=== PATIENT | male | born 1980 ===

== ENCOUNTER 2025-05-01 12:18 | Outpatient (AMB) | payer OTHER, MEDICAID, SELFPAY ==
--- NOTE | 2025-05-01 12:24 | A.OFFVIS_ITS ---
Intake Visit Reasons: 6m follow up autism Allergies No Known Allergies Allergy (Unverified 01/31/20 14:41) HPI Comments Details: 44 years old man with diagnosis of autism. I initially saw him in 2014. He was born in [facility] from a full-term . He started having seizure when he was 4 to 5 years old and was treated with some antiseizure medicine that would later stopped. His EEG in 2014 was unremarkable. He walked at age 5. His language was significantly impaired in his said few words when he was about 7 years old. In school, he was put in special Ed classes. In his early 20s, he started having behavioral symptoms of anger, fighting, delusions and hallucinations. He was seen by a psychiatrist and was put on psychotropic medicines. He is treated for insomnia, restless legs syndrome, and behavioral symptomatology. He is presenting for medication refills. He has a history of seizures as a child but has had none recently, and a prior EEG was conducted approximately 10 years ago. His sister reports that he continues to experience restlessness. He uses a CPAP machine for a sleep-related breathing disorder, and his baton teacher has scheduled him for a repeat sleep study tonight due to concerns about its efficacy. Current medications include oxcarbazepine two tablets at bedtime, gabapentin one tablet at bedtime, and clonidine one tablet at bedtime. Review of Systems Narrative - Neurological: Reports restlessness. Denies recent seizure activity. Physical Exam Neuro Other: Mental Status: He is alert and awake giggling and laughing sometime seeing a single word. Cranial Nerves: CN II: Visual lozano full to confrontation, visual acuity intact. CN III, IV, : Pupils equal, round, reactive to light and accommodation. Extraocular movements are normal. CN V: Facial sensation is normal. CN VII: Facial movements symmetrical. CN VIII: Hearing intact to bedside conversation is normal. CN IX, X: Palate elevates symmetrically. CN XI: Shoulder shrug and head turn symmetrical. CN XII: Tongue midline without atrophy or fasciculations. Gait and Station: No obvious gait abnormality. No ataxia or instability. Extrapyramidal: Full facial expressions and blinking. No rigidity. Movements are appropriate with no tremor or abnormality. Speech: Normal; no dysarthria or tremor. Assessment & Plan Assessment & Plan (1) Insomnia: Code(s): G47.00 - Insomnia, unspecified Category: Medical Qualifiers: Insomnia type: due to other mental disorder Qualified Code(s): F51.05 - Insomnia due to other mental disorder; F99 - Mental disorder, not otherwise specified (2) RLS (restless legs syndrome): Code(s): G25.81 - Restless legs syndrome Category: Medical (3) Autism: Code(s): F84.0 - Autistic disorder Category: Medical Plan Impression: 1. Autism spectrum disorder, moderate to severely affected, with behavioral symptoms. 2. Restless legs syndrome 3. Chronic insomnia. Recommendations: 1. Oxcarbazepine 300 mg 2 tablets at night 2. Gabapentin 300 mg 1 at bedtime and 3. Clonidine 0.1 mg 1 at bedtime 4. EEG I discussed the plan with the patient's sister. We reviewed his current medications, and I have sent refills for oxcarbazepine, gabapentin, and clonidine to the [facility] pharmacy on file. I recommended scheduling a new EEG, as his last one was 10 years ago. We acknowledged the upcoming sleep study ordered by his baton teacher. He is to follow up in three months. Orders: Orders EEG Routine Today G40.909 - Epilepsy, unspecified, not intractable, without status epilepticus Medications: New gabapentin 300 mg orally one at bedtime; 90 caps 0RF oxcarbazepine 600 mg orally at bedtime; 180 tabs 0RF clonidine HCl 0.1 mg PO BEDTIME 90 tabs 0RF Coding Level of Care Code Est Pt Level 4 (38746) Diagnoses Insomnia due to other mental disorder F51.05; F99 Insomnia type: due to other mental disorder RLS (restless legs syndrome) G25.81 Autism F84.0
--- OUTSIDE RECORDS SUMMARY | 2025-05-01 16:13 | XMS_ITS | Encounter Summary ---
Author Organization [email or web address] [facility] Address [address] [place] [address] Care Team Providers Care Marketing Analytics Manager Name Role Phone Unavailable Primary Care Provider Unavailabl e Encounter Details Date Type Department Care Team (Latest Contact Info) Description 10/28/2020 Abstract C CONVERSIONS Dental, Provider, DDS Social History Tobacco Use Types Packs/Day Years Used Date Smoking Tobacco: Never Assessed Sex and Gender Information Value Date Recorded Sex Assigned at Male 03/15/2022 10:15 AM EDT Legal Sex Male 10:15 AM EDT Gender Identity Male 03/15/2022 10:15 AM EDT Sexual Orientation Straight 03/15/2022 10 :15 AM EDT documented as of this encounter Plan of Treatment Not on file documented as of this encounter Visit Diagnoses Not on filedocumented in this encounter
--- OUTSIDE RECORDS SUMMARY | 2025-05-01 16:13 | XMS_ITS | Encounter Summary ---
Author Organization [facility] Address [address] [place] [address] Care Team Providers Care Block Mechanic Name Role Phone Unavailable Primary Care Provider Unavailabl e Encounter Details Date Type Department Care Team (Latest Contact Info) Description 07/19/2019 Abstract C CONVERSIONS Dental, Provider, DDS Social [...]
--- OUTSIDE RECORDS SUMMARY | 2025-05-01 16:13 | XMS_ITS | Clinical Summary ---
Author Organization [facility] [address] [facility] Address [address] [place], [place] Phone Care Team Providers Care Gas Pumping Station Supervisor Name Role Phone Artem North MD Primary Care Provider [phone] Allergies Active Allergy Reactions Criticality Noted Date Comments Other 06/19/2019 Seasonal Medications loratadine (CLARITIN) 10 mg tablet Take 1 tablet (10 mg total) by mouth 1 (one) time each day. 4 Active cloNIDine (CATAPRES) 0.1 mg tablet Take 1 tablet (0.1 mg total) by mouth 1 (one) time each day. 3 Active gabapentin (NEURONTIN) 300 mg capsule Take 1 capsule (300 mg total) by mouth at bedtime. 3 Active OXcarbazepine (TRILEPTAL) 300 mg tablet Take 2 Tabs by mouth every evening. 1 Active risperiDONE (RisperDAL) 1 mg tablet TAKE 1 TABLET BY MOUTH EVERYDAY AT BEDTIME 30 tablet 5 Active traZODone (DESYREL) 100 mg tablet Take 1 tablet (100 mg total) by mouth at bedtime. 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 Schizophrenia 04/10/2024 Insomnia disorder, with non- sleep disorder mental comorbidity, persistent 01/25/2023 Overweight (BMI 25.0-29.9) 01/25/2023 Nocturnal hypoxemia 04/05/2020 Obstructive sleep apnea 04/05/2020 Overview (04/10/2024): [facility] Home Sleep Apnea Test: Date 03/29/2020; Wt 214#; BMI 31; JUSTICE (AHI) 76, AI 74; HI 2; Unclassified apneas 0; Obstructive apneas 447; Central apneas 16; Mixed apneas 8; hypopneas 12; average oxygen saturation 92% (lowest 56% with saturations <88% for 5% or more of study) SMS treatment polysomnogram 08/03/2021; weight 218; BMI 21. Interpretation: Respiratory events were controlled at arrange of test and CPAP pressures at and above 10 cm but snoring was still present. Recommendation was for CPAP at 18. - Obstructive Sleep Apnea - severe; mostly obstructive apneas; with sleep related hypoventilation by 2019 home sleep apnea test. Seasonal allergic rhinitis 09/09/2017 Encounters Date Type Department Care Team Description 02/08/2025 11:00 AM EDT Office Visit Pulmonology - [address] [place] [address] Velma Salvador NP Obstructive sleep apnea (Primary Dx); Nocturnal hypoxemia; Autism; Schizophrenia, unspecified type (CMS/[facility] V24, CMS/[facility] V28); Obesity (BMI 30-39.9) from Last 3 Months Immunizations Immunization Administration Dates Next Due Influenza Quadravalent, MDCK , 0.5ml, preservative free (Flucelvax) 6mo and older 06/17/2022,01/29/2020,03/26/2019 Influenza Quadravalent, MDCK , 0.5ml, with preservative (Flucelvax) 6mo and older 03/13/2018,05/11/2017 Influenza trivalent, 0.5mL, preservative free (Fluarix; FluLaval; Fluzone) ages 6mo and older (Afluria) 3 years and older 02/05/2016,03/27/2015,03/21/2014 Moderna SARS-CoV-2 COVID-19, mRNA, LNP-S, preservative free 05/14/2021 Tdap Tetanus diptheria acell ular pertussis (Boostrix; Adacel) 7yo and older 05/22/2013 Medical History Medical History Date Comments 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 No 12/11/2024 Food Access & Nutrition Answer Date Rec orded Do you have access to a vari ety of food including fruits and vegetables? Yes 12/11/2024 Access to Healthcare Answer Date Record ed Within the last 3 months, leda michel many times did you visit the emergency department for your medical care? 0 12/11/2024 Health Literacy Answer Date Recorded How often do you need to hav e someone help you when you read instructions, pamphlets, or other written material from your doctor or pharmacy? Always 12/11/2024 Caregiver: How often do you need to have someone help you when you read instructions, pamphlets, or other written material from your doctor or pharmacy? Not on file 12/11/2024 Financial Risk Answer Date Recorded How hard is it for you to pa y for the very basics like food, housing, medical care, and air conditioning / heating? Not very hard 12/11/2024 Transportation Answer Date Recorded Has the lack of transportati on kept you from meetings, work, or from getting things needed for daily living? No Has the lack of transportati on kept you from medical appointments or from getting medications? No 12/11/2024 Social Isolation Answer Date Recorded How often do you feel lonely or isolated from th ose around you? Never 12/11/2024 Food Risk Answer Date Recorded Within the past 12 months we worried whether our food would run out before we got money to buy more. Never true 12/11/2024 Within the past 12 months th e food we bought just didn't last and we didn't have money to get more. Never true 12/11/2024 Dependent Care Answer Date Recorded Do you need help finding or paying for care for your loved ones. For example, childcare center administrator or elderly care for an older adult? No 12/11/2024 Education Answer Date Recorded Do you think completing more education or training, like finishing a GED, going to college, or learning a trade, would be helpful for you? No 12/11/2024 Employment and Income Answer Date Recor ded During the last four weeks, have you been actively looking for work? No 12/11/2024 Living Situation Answer Date Recorded What is your living situation? Unrecognized valu e 12/11/2024 Sex and Gender Information Value Date Recorded Sex Assigned at Not on file Legal Sex Male 1:55 PM EST Gender Identity Not on file Sexual Orientation Not on file Last Filed Vital Signs Vital Sign Reading Time Taken Comments Blood Pressure 124/80 02/08/2025 11:14 AM EDT Pulse 84 02/08/2025 11:14 AM EDT Temperature 36.3 C (97.4 F) 02/08/2025 11:14 AM EDT Respiratory Rate 14 02/08/2025 11:14 AM EDT Oxygen Saturation 99% 02/08/2025 11:14 AM EDT Inhaled Oxygen Concentration - - Weight 101 kg (222 lb 9.6 oz) 02/08/2025 11:14 A M EDT Height 177.8 cm (5' 10 ) 02/08/2025 11:14 AM EDT Body Mass Index 31.94 02/08/2025 11:14 AM EDT Plan of Treatment Upcoming Encounters Date Type Department Care Team (Late st Contact Info) Description 05/08/2025 10:00 AM EST Office Visit Adult Medicine [facility] [address] [place] [address] Michelle Garcia NP [address] [place] [address] 06/10/2025 11:00 AM EST Office Visit Pulmonology - [place] [address] [place] [address] Velma Salvador, TREVOR [address] [place] [address] Health Maintenance Due Date Last Done Comments Hepatitis B Vaccines (1 of 3 - 19+ 3-dose series) 2001 HPV Vaccines (1 - 3-dose SCDM series) 2009 HIV Screening 04/24/2022 Hepatitis C Screening 04/24/2022 Medicare Annual Wellness Visit 04/24/2022 DTaP,Tdap,and Td Vaccines (2 - Td or Tdap) 05/22/2023 05/22/2013 COVID-19 Vaccine ( season) 2025 05/14/2021, 09/24/2020, 08/27/2020 Social Influencers of Health Screening 12/11/2025 12/11/2024 Cholesterol Screening (Lipid Panel) 06/05/2029 06/05/2024, 12/02/2023, 12/02/2023 RSV Immunization Adult Patients (1 - 1-dose 75+ series) 2057 Depression Screening Completed 12/11/2024 Influenza Vaccine Completed 02/26/2025, , 03/12/2021, Additional history exists HIB Vaccines Aged Out No longer eligi ble based on patient's age to complete this topic Hepatitis A Vaccines Aged Out No long er eligible based on patient's age to complete this topic IPV Vaccines Aged Out No longer eligi ble based on patient's age to complete this topic MMR Vaccines Aged Out No longer eligi ble based on patient's age to complete this topic Meningococcal ACWY Vaccine Aged Out N o longer eligible based on patient's age to complete this topic Meningococcal B Vaccine Aged Out No l onger eligible based on patient's age to complete this topic Pneumococcal Vaccine: Pediatrics (0 to 5 Years) and At-Risk Patients (6 to 49 Years) Aged Out No longer eligible based on patient's age to complete this topic RSV Immunization Patients Under 20 months Aged Out No longer eligible based on patient's age to complete this topic Varicella Vaccines Aged Out No longer eligible based on patient's age to complete this topic Procedures Procedure Name Priority Date/Time Associated Diagnosis Comments LIPID PANEL WITH REFLEX TO DIRECT LDL Routine 06/05/2024 4:22 PM EST High cholesterol from Last 3 Months or Most Recently Relevant to Health Maintenance Results * (ABNORMAL) Lipid panel with reflex to direct LDL (06/05/2024 4:22 PM EST) Cholesterol 216(H) 0 - 200 mg/dL LAB CHEMISTRY METHOD 06/05/2024 7:11 PM EST [facility] Triglycerides 277(H) 0 - 150 mg/dL LAB CHEMISTRY METHOD 06/05/2024 7:11 PM [facility] HDL 60 >=40 mg/dL LAB CHEMISTRY METHOD 06/05/2024 7:11 PM EST [facility] LDL Calculated 101(H) 0 - 100 mg/dL LAB CHEMISTRY METHOD 06/05/2024 7:11 PM EST [facility] VLDL Cholesterol Killian 55.4 mg/dL LAB CHEMISTRY METHOD 06/05/2024 7:11 PM EST [facility] Non HDL Chol. (LDL+VLDL) 156(H) <145 mg/dL LAB CHEMISTRY METHOD 06/05/2024 7:11 PM EST [facility] Chol/HDL Ratio 3.6 0.0 - 4.4 LAB CHEMISTRY METHOD 06/05/2024 7:11 PM EST [facility] Blood Venous blood specimen / Unknown Venipuncture / Unknown 06/05/2024 4:22 PM EST 06/05/2024 4:22 PM EST us Artem North MD LAB BLOOD ORDERABLES Final Resu lt [facility] [address] [place] [address], [place] [phone] from Last 3 Months or Most Recently Relevant to Health Maintenance Insurance [employer] MED[employer] Member Subscriber Plan / Payer (Ef fective 2018-Present) Name:MARIO OLVERA Relation to Subscriber:Self Name:Mario Olvera Payer ID:[id number] Group ID:[id number] Type:Not on file Address: [place] [address] [address] [id number] Care Teams Gas Pumping Station Supervisor Relationship Specialty Start Date End Date Artem North MD [address] [place] [phone] PCP - General Internal Medicine 02/08/25
--- OUTSIDE RECORDS SUMMARY | 2025-05-01 16:13 | XMS_ITS | Clinical Summary ---
Author Organization [employer] Address [address] [place] [address] Care Team Providers Care Cement Conveyor Operator Name Role Phone Unavailable Primary Care Provider Unavailabl e Social History Tobacco Use Types Packs/Day Years Used Date Smoking Tobacco: Never Assessed Sex and Gender Information Value Date Recorded Sex Assigned at Male 03/15/2022 10:15 AM EDT Legal Sex Male 10:15 AM EDT Gender Identity Male 03/15/2022 10:15 AM EDT Sexual Orientation Straight 03/15/2022 10 :15 AM EDT Plan of Treatment Health Maintenance Due Date Last Done Comments Depression Screening 1982 Lipid Panel 1982 Disability Screening 1982 Alcohol/Substance Use Screening 1994 Tobacco Screening 1994 Family Planning (PISQ) 1997 HPV Vaccines (1 - Male 3-dos e series) 1997 DTaP/Tdap/Td Vaccines (1 - Tdap) 2001 Hepatitis B Vaccines (1 of 3 - 19+ 3-dose series) 2001 COVID-19 Vaccine (1 - 2024-2 6 season) 2025 Influenza Vaccine (#1) 2025 Zoster Vaccines (1 of 2) 2032 RSV Patients and Pa tients Aged 60 years or older (1 - 1-dose 75+ series) 2057 HIB Vaccines Aged Out No longer eligi [...] patient's age to complete this topic Meningococcal Vaccine Aged Out No paul joanne eligible based on patient's age to complete this topic Pneumococcal Vaccine: Pediat rics (0 to 5 Years) and At-Risk Patients (6 to 49) Years Aged Out No longer eligible b ased on patient's age to complete this topic RSV under 20 months Aged Out No longe r eligible based on patient's age to complete this topic Rotavirus Vaccines Aged Out No longer eligible based on patient's age to complete this topic
== END 2025-05-01 12:39 | disposition home or self-care (01) ==
LOC: HO.HSM 12:18
PROVIDERS: PCP Internal Medicine; Referring Provider Internal Medicine; Visit Provider Psychiatry & Neurology Neurology
DX: F51.05 Insomnia due to other mental disorder (principal); F99 Mental disorder, not otherwise specified; G25.81 Restless legs syndrome; F84.0 Autistic disorder
CPT/HCPCS: 99214

== ENCOUNTER → 2025-05-01 12:18 | Outpatient (BNVA) | payer OTHER, SELFPAY | PROVIDERS: PCP Internal Medicine; Referring Provider Internal Medicine; Visit Provider Psychiatry & Neurology Neurology | DX: F84.0 Autistic disorder (principal); G47.00 Insomnia, unspecified; F51.05 Insomnia due to other mental disorder; G25.81 Restless legs syndrome; F99 Mental disorder, not otherwise specified | CPT/HCPCS: 99212 ==